=== PATIENT | female | born 1990 | race Caucasian/White ===

== ENCOUNTER → 2019-08-08 | Outpatient (CLI) | payer BC ==
--- NOTE | 2019-08-08 10:38 | US ---
EXAMINATION TYPE: Transabdominal DATE OF EXAM: 08/08/2019 10:18 AM COMPARISON: NONE CLINICAL HISTORY: O46.91 SPOTTING. Spotting EXAM PERFORMED: Transvaginal (TV) and Transabdominal (TA) EXAM MEASUREMENTS: GESTATIONAL AGE / DATING Physician Established: Not yet established Dates by LMP: (8 weeks/0 days) EDC: 03/19/20 Dates by First Scan: No previous this is first scan Dates by Current Scan for: No IUP seen at this time MATERNAL ANATOMY Uterus: 8.8 x 4.3 x 5.0cm Right Ovary: 3.5 x 2.2 x 2.2cm Left Ovary: 3.2 x 1.9 x 2.3cm Post CDS / Adnexa: appears wnl Presence of free fluid: no GESTATION / SURVEY IUP: No IUP seen at this time Date of LMP: 06/13/19 Beta HcG (if available): Not available at this time No evidence of IUP at this time IMPRESSION: No evidence of uncertain at this time. Correlate clinically and with serial beta hCG and/or ultrasound.
== END | disposition home or self-care (01) ==
LOC: RADUSWWP 09:48
PROVIDERS: ATTEND Obstetrics & Gynecology
DX: O46.91 Antepartum hemorrhage, unspecified, first trimester (principal)
CPT/HCPCS: 36415; 76801; 76817; 84702; 86850; 86900; 86901

== ENCOUNTER → 2020-11-16 | Outpatient (CLI) | payer BC ==
[2020-11-16 10:48] LABS: Basophils # (A) 0.1 k/uL (0-0.2); Basophils % (A) 0 %; Eosinophils # (A) 0.5 k/uL (0-0.7); Eosinophils % (A) 4 %; HCT 42.7 % (34.0-46.0); HGB 14.5 gm/dL (11.4-16.0); Lymphocytes # (A) 2.5 k/uL (1.0-4.8); Lymphocytes % (A) 21 %; MCH 31.8 pg (25.0-35.0); MCV 93.7 fL (80.0-100.0); Mean Platelet Volume 8.5; Monocytes # (A) 0.4 k/uL (0-1.0); Monocytes % (A) 3 %; Neutrophils # (A) 8.6 k/uL (1.3-7.7); Neutrophils % (A) 71 %; Platelet Count 226 k/uL (150-450); RBC 4.56 m/uL (3.80-5.40); RDW 12.8 % (11.5-15.5); WBC 12.2 k/uL (3.8-10.6)
== END | disposition home or self-care (01) ==
LOC: LABPAT 10:02
PROVIDERS: ATTEND Obstetrics & Gynecology
DX: Z01.818 Encounter for other preprocedural examination (principal); O02.1 Missed abortion; Z3A.00 Weeks of gestation of pregnancy not specified
CPT/HCPCS: 85025

== ENCOUNTER 2020-11-17 06:23 | Day surgery (SDC) | payer BC ==
[2020-11-16 09:54] VITALS: BMI 34.1
[~2020-11-17 06:23] MED LIST: Pre Op ABX Message 1 EACH MISC MISCELLANE ONE
[2020-11-17] MEDS ORDERED: LACTATED RINGERS 1,000 ML IV SCH ×2 (06:31→08:15)
[2020-11-17] MEDS ORDERED: MIDAZOLAM 2 MG/2 ML VIAL IV PRN (06:31)
[2020-11-17] MEDS ORDERED: DEXAMETHASONE SOD PHOSPHATE 4 MG/ML 1 ML VIAL IV ONE (06:31)
[2020-11-17] MEDS ORDERED: ONDANSETRON 4 MG/2 ML VIAL IVP ONE (06:31)
[2020-11-17] MEDS ORDERED: LIDOCAINE 1% (10MG/ML) FOR IV START INTRADERMA PRN (06:31)
[2020-11-17] MEDS ORDERED: HYDROmorphone 0.5 MG/0.5 ML SYRINGE IVP PRN (07:00)
[2020-11-17] MEDS ORDERED: SCOPOLAMINE 1.5MG/72HR PATCH TRANSDERM ONE (07:10)
[2020-11-17] MEDS ORDERED: MIDAZOLAM 2 MG/2 ML VIAL IV ONE (07:19)
[2020-11-17] MEDS ORDERED: LIDOCAINE 1% INJ 10MG/ML (20 ML MDV) ONE (07:31)
[2020-11-17] MEDS ORDERED: PROPOFOL 10 MG/ML 20 ML VIAL IV ONE (07:31)
[2020-11-17] MEDS ORDERED: MIDAZOLAM 2 MG/2 ML VIAL ONE (07:31)
[2020-11-17] MEDS ORDERED: fentaNYL (PF) 50 MCG/ML 2 ML AMP ONE (07:31)
[2020-11-17] MEDS ORDERED: KETOROLAC 15 MG/ML 1 ML VIAL ONE (07:31)
[2020-11-17] MEDS ORDERED: Acetaminophen-Codeine 300-30mg TAB PO PRN ×2 (08:12)
[2020-11-17] MEDS ORDERED: KETOROLAC 15 MG/ML 1 ML VIAL IVP PRN (08:12)
[2020-11-17] MEDS ORDERED: SIMETHICONE 80 MG CHEWABLE PO PRN (08:12)
[2020-11-17] MEDS ORDERED: IBUPROFEN 600 MG TAB PO PRN (08:12)
[2020-11-17] MEDS ORDERED: METOCLOPRAMIDE 5 MG/ML 2 ML VIAL IVP PRN (08:12)
[2020-11-17] MEDS ORDERED: diphenhydrAMINE 50 MG/ML 1 ML VIAL IVP PRN (08:12)
[2020-11-17] MEDS ORDERED: ONDANSETRON 4 MG/2 ML VIAL IVP PRN (08:12)
--- NOTE | 2020-11-17 08:18 | P.OP ---
Date of Procedure: 11/17/20 Preoperative Diagnosis: #1. Seven-week missed Postoperative Diagnosis: Same Procedure(s) Performed: #1. Dilation and aspiration curettage Anesthesia: other (Gen. by LMA) Surgeon: Jose E Weber Estimated Blood Loss (ml): 100 IV fluids (ml): 600 Urine output (ml): 10 Pathology: other (Intrauterine contents) Condition: stable Disposition: PACU Operative Findings: Preoperative pelvic examination demonstrated a roughly 6-7 week retroverted mobile normal shaped uterus with normal adnexa bilaterally. Intraoperatively, the uterus sounded to approximately 11 cm. A #9 curved aspiration curet was utilized and tissue was seen passing through the tubing. The typical gritty texture was encountered with a sharp curette. Description of Procedure: The patient was prepped and draped in usual fashion after general anesthesia was administered by the anesthesiologist. A weighted speculum was placed and the anterior lip of the cervix grasped with a single-tooth tenaculum after draining the bladder of approximately 10 mL of clear mile urine. The uterus was sounded to approximately 11 cm. Serial dilation was carried out to admit a #9 curved aspiration curet which was placed to the fundus of the uterus and suction applied. After really adequate suction, thorough and circumferential aspiration curettage was carried out from the fundus to the cervix. Tissue closed seen passing through the tubing on the first pass. Second pass failed to produce any significant to the tissue. The aspiration curet was placed with a sharp curette which was again utilized to thoroughly and circumferentially secure at the endometrial cavity with any tissue being brought into the vagina where was sucked up with the aspiration curet. There was no tissue noted in the typical gritty texture was encountered throughout. One last pass was made with the aspiration curet and all instrumentation removed. There was no ongoing bleeding either from the cervix or from the tenaculum sites. The uterus was appreciably smaller. All sponge, instrument, needle counts were correct. There were no complications. Estimated blood loss for the case is approximately 100 mL. The patient tolerated the procedure well and proceeded to the recovery room in stable condition.
[2020-11-17 08:21] VITALS: TEMP 97.4
[2020-11-17 08:55] VITALS: PULSE 67; RESP 18
[2020-11-17 09:44] VITALS: BP 132/70
[2020-11-18] MEDS ORDERED: ACETAMINOPHEN TAB 325 MG TAB PO PRN (08:13)
== END 2020-11-17 09:44 | disposition home or self-care (01) ==
LOC: OR 06:23
PROVIDERS: ATTEND Obstetrics & Gynecology
DX: O02.1 Missed abortion (principal); Z88.2 Allergy status to sulfonamides; Z79.82 Long term (current) use of aspirin; Z79.899 Other long term (current) drug therapy; Z83.3 Family history of diabetes mellitus
CPT/HCPCS: 59820; 88305; J2250; J1100; J2405; J2001; J3010; J1885; J2704; 36415; 86850; 86900; 86901

== ENCOUNTER → 2021-11-08 | Outpatient (CLI) | payer BC ==
[2021-11-09 02:10] LABS: HCG,Quantitative Serum <0.1 (0.0-6.0)
== END | disposition home or self-care (01) ==
LOC: LABWHC1 16:18
PROVIDERS: ATTEND Obstetrics & Gynecology
DX: N92.5 Other specified irregular menstruation (principal); E03.9 Hypothyroidism, unspecified
CPT/HCPCS: 36415; 84144; 84439; 84443; 84702

== ENCOUNTER → 2021-11-24 | Outpatient (CLI) | payer BC, OTHER | END | disposition home or self-care (01) | LOC: LABWHC1 06:07 | PROVIDERS: ATTEND Emergency Medicine | DX: U07.1 COVID-19 (principal) | CPT/HCPCS: 87635 ==